=== PATIENT | female | born 1945 | race American Indian/Alaskan Native ===

== ENCOUNTER 2017-06-14 21:26 | Emergency (ER) | payer MEDICARE, OTHER ==
[~2017-06-14] VITALS: Ht 175.3 cm; Wt 93.0 kg
[~2017-06-14 21:26] MED LIST: DIALYVITE V5000 UNIT; GABAPENTIN100 MG PO; LORTAB 5-325 M1 EACH PO; LYRICA50 MG PO; NORCO 5-325 TA1 EACH PO; OXYCODONE HCL5 MG PO; OXYCODONE-ACET1 EAC1 PO; TRAMADOL HCL50 MG PO; ULORIC40 MG PO; [UNRECOGNIZED DRUG - OTHER]
--- NOTE | 2017-06-15 06:55 | EKG ---
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
== END 2017-06-15 01:15 | disposition home or self-care (01) ==
LOC: ED 21:26
DX: R07.9 Chest pain, unspecified (principal); Z90.49 Acquired absence of other specified parts of digestive tract; Z88.8 Allergy status to other drugs, medicaments and biological substances; Z79.899 Other long term (current) drug therapy; Z79.891 Long term (current) use of opiate analgesic
CPT/HCPCS: 71010; 71260; 80053; 84484; 85025; 93005; 93010; 96361; 96374; 96375; 99284; J1170; J2405; J7030; Q9967

== ENCOUNTER 2019-03-02 19:56 | Emergency (ER) | payer MEDICARE, OTHER ==
[~2019-03-02] VITALS: Ht 175.3 cm; Wt 80.7 kg
--- OUTSIDE RECORDS SUMMARY | ~2019-03-02 | XMS | Clinical Summary ---
Demographics + + + | Address | [address] | | | [place] [address] | + + + | Home Phone | | + + + | Preferred Language | Unknown | + + + | Marital Status | | + + + | Adventism Affiliation | Unknown | + + + | Race | Unknown | + + + | Ethnic Group | Unknown | + + + Author + + + | Author | [facility] | | | and [place] | + + + | Organization | [facility] | | | and [place] | + + + | Address | Unknown | + + + | Phone | Unavailable | + + + Support + + + + + | Name | Relationship | Address | Phone | + + + + + | Erinn Browning | ECON | [address] | | | | | [place] [address] | | + + + + + | Fran Cortez | ECON | [address] | | | | | [place] | | | | | [address] | | + + + + + Care Team Providers + +------+ + | Care Fish Hatchery Superintendent Name | Role | Phone | + +------+ + | Rose An PA-C | PP | | + +------+ + Allergies + + + + + + | Active Allergy | Reactions | Severity | Noted | Comments | | | | | Date | | + + + + + + | Acetaminophen | | | 12/18/20 | | | | | | 15 | | + + + + + + | Propoxyphene | | | 03//20 | | | | | | 14 | | + + + + + + | Epinephrine | | | 12/18/20 | | | | | | 15 | | + + + + + + | Naproxen | | | 12/18/20 | | | | | | 15 | | + + + + + + Medications + + + +---------+------+------+-------+ | Medication | Sig | Dispensed | Refills | Star | End | Statu | | | | | | t | Date | s | | | | | | Date | | | + + + +---------+------+------+-------+ | pregabalin | Take 1 capsule by | 60 | 2 | 07/14 | | Activ | | (LYRICA) 50 MG | mouth 2 times daily. | capsule | | 05/02 | | e | | capsule | | | | 15 | | | + + + +---------+------+------+-------+ | apremilast | Take 30 mg by mouth | | 0 | | | Activ | | (OTEZLA) 30 mg | 2 times daily. | | | | | e | | tablet | | | | | | | + + + +---------+------+------+-------+ | folic acid 1 mg | Take 1 mg by mouth | | 0 | | | Activ | | tablet | Daily. | | | | | e | + + + +---------+------+------+-------+ | fluconazole | Take 150 mg by | | 0 | | | Activ | | (DIFLUCAN) 150 mg | mouth. Once weekly | | | | | e | | tablet | | | | | | | + + + +---------+------+------+-------+ | Secukinumab | Inject under the | | 0 | | | Activ | | (COSENTYX SC) | skin. | | | | | e | + + + +---------+------+------+-------+ Active Problems + + + | Problem | Noted Date | + + + | Bilateral hand pain | 08/21/2015 | + + + | Paresthesias - in both hands | 08/21/2015 | + + + | Myeloma | 01/27/2015 | + + + | Heart block AV first degree | | + + + | Dyspnea | | + + + | Fatigue | | + + + | Bradycardia | | + + + + + | Overview: Holter Monitor 11/23/15, shows predominant rhythm | | is normal sinus with the heart rate ranging between 63 and 125 | | beats per minute, average heart rate was 86 beats per minute | | during the 48:31 hour recording, occasional premature ventricular | | contractions including seven couplets, frequent premature atrial | | contractions including one couplet, one run of paroxysmal atrial | | tachycardia lasting 18 beats at a maximum rate of 131 beats per | | minute (17:22-1), the patient did not report any symptoms | | Echocardiogram 11/23/15, shows normal left ventricular size, wall | | thickness and motion, preserved left ventricular systolic | | function, LVEF is 65-70%, grade 1 left ventricular diastolic | | dysfunction, normal valvular structure, top normal aortic root | | measuring 3.7 cm in diameter, normal right-sided pressure, normal | | IVC with normal respiratory collapse. | + + Encounters +--------+ + + + + | Date | Type | Specialty | Care Team | Description | +--------+ + + + + | 01/14/ | Hospital | | Cristóbal Gary | Multiple myeloma, | | 2019 | Encounter | | MD Дмитрий | remission status | | | | | | unspecified (HCC) | | | | | | (Primary Dx); | | | | | | Paresthesias - in | | | | | | both hands; Heart | | | | | | block AV first | | | | | | degree; Bradycardia; | | | | | | Fatigue, | | | | | | unspecified type | +--------+ + + + + from Last 3 Months Family History + +--------+ + + | Relation | Name | Status | Comments | + +--------+ + + | | Kai | Alive | | + +--------+ + + | Father | | | Diabetes | | | | (Age | | | | | 64) | | + +--------+ + + | Mother | | | [place] | | | | (Age | | | | | 57) | | + +--------+ + + | Sister | Erinn | Alive | Diabetes | + +--------+ + + Social History + +-------+ +--------+------+ | Tobacco Use | Types | Packs/Day | Years | Date | | | | | Used | | + +-------+ +--------+------+ | Former Smoker | | | | | + +-------+ +--------+------+ + +---+---+---+ | Smokeless Tobacco: | | | | | Never Used | | | | + +---+---+---+ + + | Comments: quit smoking in 1999 | + + + + +---------+ + | Alcohol Use | Drinks/We | oz/Week | Comments | | | ek | | | + + +---------+ + | No | 0 | 0.0 | | | | Standard | | | | | drinks or | | | | | | | | | | equivalen | | | | | t | | | + + +---------+ + + + + | Sex Assigned at | Date Recorded | | | | + + + | Not on file | | + + + + + + + | Job Start Date | Occupation | Industry | + + + + | Not on file | Not on file | Not on file | + + + + + + + + | Travel History | Travel Start | Travel End | + + + + + + | No recent travel history available. | + + Last Filed Vital Signs + + + + | Vital Sign | Reading | Time Taken | + + + + | Blood Pressure | 119/55 | 01/14/2019 1415 PST | + + + + | Pulse | 73 | 01/14/20191414 PST | + + + + | Temperature | 36 C (96.8 F) | 01/14/20191414 PST | + + + + | Respiratory Rate | 16 | 01/14/20191414 PST | + + + + | Oxygen Saturation | 100% | 01/14/20191414 PST | + + + + | Inhaled Oxygen | - | - | | Concentration | | | + + + + | Weight | 83.8 kg (184 lb 11.9 | 01/14/20191414 PST | | | oz) | | + + + + | Height | 175.3 cm (5' 9") | 01/24/20171400 PDT | + + + + | Body Mass Index | 27.28 | 01/24/20171400 PDT | + + + + Plan of Treatment +--------+ + + + + | Date | Type | Specialty | Care Team | Description | +--------+ + + + + | 01/19/ | Appointment | | Cristóbal Gary | | | 2019 | | | MD Дм[address]рий [address] | | | | | [address] | | | | | | [place] [address] | | | | | | [phone] | | | | | | | | +--------+ + + + + + + + + + | Health Maintenance | Due Date | Last Done | Comments | + + + + + | Vaccine: | | | | | Dtap/Tdap/Td (1 - | 3 | | | | Tdap) | | | | + + + + + | Breast Cancer | | | | | Screening (Ages | 4 | | | | 50-74) | | | | + + + + + | Colorectal Cancer | | 08/21/2001 | | | Screening | 1 | | | | (Colonoscopy) | | | | + + + + + | Adult Annual | | | | | Wellness Visit | 5 | | | + + + + + | Vaccine: | | 10/01/2015 | | | Pneumococcal 65+ | 6 | | | | High/Highest Risk (2 | | | | | of 2 - PPSV23) | | | | + + + + + | Vaccine: Zoster (2 | | 08/31/2017, 09/30/2014 | | | of 3) | 7 | | | + + + + + | Vaccine: Influenza | Completed | 08/27/2018, 08/18/2017, | | | | | 08/03/2016, Additional history | | | | | exists | | + + + + + Procedures + +--------+ + + + | Procedure Name | Priori | Date/Time | Associated Diagnosis | Comments | | | ty | | | | + +--------+ + + + | CBC WITH | STAT | 01/14/2019 | Multiple myeloma, | Results for this | | DIFFERENTIAL | | 13:47 PST | remission status | procedure are in the | | | | | unspecified ([facility]) | results section. | | | | | Paresthesias - in | | | | | | both hands Heart | | | | | | block AV first | | | | | | degree Bradycardia | | + +--------+ + + + | COMPREHENSIVE | STAT | 01/14/2019 | Multiple myeloma, | Results for this | | METABOLIC PANEL | | 13:47 PST | remission status | procedure are in the | | | | | unspecified ([facility]) | results section. | | | | | Paresthesias - in | | | | | | both hands Heart | | | | | | block AV first | | | | | | degree Bradycardia | | + +--------+ + + + | PROTEIN | STAT | 01/14/2019 | Multiple myeloma, | Results for this | | ELECTROPHORESIS, | | 13:47 PST | remission status | procedure are in the | | SERUM | | | unspecified (HCC) | results section. | | | | | Paresthesias - in | | | | | | both hands Heart | | | | | | block AV first | | | | | | degree Bradycardia | | + +--------+ + + + from Last 3 Months Results CBC with Differential (01/14/2019 13:47 PST) + + + + + + | Component | Value | Ref Range | Performed | Pathologist | | | | | At | Signature | + + + + + + | WBC | 6.3 | 4.0 - 11.0 K/uL | [facility] | | | | | | [facility] | | | | | | [facility] | | | | | [facility] - | | | | | | LABORATORY | | + + + + + + | RBC | 3.84 | 3.70 - 5.20 | [facility] | | | | | M/uL | [facility] | | | | | | [facility] | | | | | | C[facility] - | | | | | | LABORATORY | | + + + + + + | Hemoglobin | 11.4 (L) | 11.5 - 16.0 | [facility] | | | | | g/dL | [facility] | | | | | | [facility] | | | | | | C[facility] - | | | | | | LABORATORY | | + + + + + + | Hematocrit | 34.0 | 34.0 - 47.0 % | [facility] | | | | | [facility] | | | | | [facility] | | | | | | [facility] - | | | | | | LABORATORY | | + + + + + + | MCV | 88.5 | 83.0 - 101.0 fL | [facility] | | | | | | [facility] | | | | | | [facility] | | | | | | [facility] - | | | | | | LABORATORY | | + + + + + + | MCH | 29.7 | 28.0 - 35.0 pg | [facility] | | | | | | [facility] | | | | | | [facility] | | | | | | [facility] - | | | | | | LABORATORY | | + + + + + + | MCHC | 33.5 | 32.0 - 36.0 | [facility] | | | | | g/dL | [facility] | | | | | | [facility] | | | | | | [facility] - | | | | | | LABORATORY | | + + + + + + | RDW-CV | 12.9 | <15.0 % | [facility] | | | | | | [facility] | | | | | | [facility] | | | | | | [facility] - | | | | | | LABORATORY | | + + + + + + | RDW-SD | 41.8 | 35.1 - 46.3 fL | [facility] | | | | | | [facility] | | | | | | [facility] | | | | | | [facility] - | | | | | | LABORATORY | | + + + + + + | Platelet | 178 | 140 - 440 K/uL | [facility] | | | Count | | | [facility] | | | | | | [facility] | | | | | | [facility] - | | | | | | LABORATORY | | + + + + + + | MPV | 8.9 | 6.5 - 12.4 fL | [facility] | | | | | | [facility] | | | | | | [facility] | | | | | | [facility] - | | | | | | LABORATORY | | + + + + + + | % | 73.1 | 45.0 - 82.0 % | [facility] | | | Neutrophils | | | [facility] | | | | | | [facility] | | | | | | [facility] - | | | | | | LABORATORY | | + + + + + + | % | 16.2 (L) | 20.0 - 45.0 % | [facility] | | | Lymphocytes | | | [facility] | | | | | | [facility] | | | | | | C[facility] - | | | | | | LABORATORY | | + + + + + + | % Monocytes | 5.9 | 4.0 - 12.0 % | [facility] | | | | | | [facility] | | | | | | [facility] | | | | | | [facility] - | | | | | | LABORATORY | | + + + + + + | % | 3.8 | 0.0 - 5.0 % | [facility] | | | Eosinophils | | | [facility] | | | | | | [facility] | | | | | | [facility] - | | | | | | LABORATORY | | + + + + + + | % Basophils | 0.5 | 0.0 - 1.0 % | [facility] | | | | | | [facility] | | | | | | [facility] | | | | | | [facility] - | | | | | | LABORATORY | | + + + + + + | % Immature | 0.5 (H)Comment: | 0.0 - 0.4 % | [facility] | | | Granulocyte | Preliminary studIes have | | [facility] | | | s | indicated the IG% | | MEDICAL | | | | and/or IG# show promise | | CENTER - | | | | as an early screen for | | LABORATORY | | | | infection. | | | | + + + + + + | Absolute | 4.61 | 1.80 - 8.50 | [facility] | | | Neutrophils | | K/uL | [facility] | | | | | | [facility] | | | | | | [facility] - | | | | | | LABORATORY | | + + + + + + | Absolute | 1.02 | 0.60 - 3.20 | [facility] | | | Lymphocytes | | K/uL | [facility] | | | | | | [facility] | | | | | | [facility] - | | | | | | LABORATORY | | + + + + + + | Absolute | 0.37 | 0.00 - 1.00 | [facility] | | | Monocytes | | K/uL | [facility] | | | | | | [facility] | | | | | | [facility] - | | | | | | LABORATORY | | + + + + + + | Absolute | 0.24 | 0.00 - 0.40 | [facility] | | | Eosinophils | | K/uL | [facility] | | | | | | [facility] | | | | | | [facility] - | | | | | | LABORATORY | | + + + + + + | Absolute | 0.03 | 0.00 - 0.10 | [facility] | | | Basophils | | K/uL | [facility] | | | | | | [facility] | | | | | | C[facility] - | | | | | | LABORATORY | | + + + + + + | Absolute | 0.03 | 0.00 - 0.03 | [facility] | | | Immature | | K/uL | [facility] | | | Granulocyte | | | MEDICAL | | | s | | | CENTER - | | | | | | LABORATORY | | + + + + + + | % nRBC | 0 | 0 - 2 per 100 | [facility] | | | | | WBC's | [facility] | | | | | | [facility] | | | | | | [facility] - | | | | | | LABORATORY | | + + + + + + | Absolute | 0.00 | 0.00 - 0.01 | [facility] | | | nRBC | | K/uL | [facility] | | | | | | [facility] | | | | | | [facility] - | | | | | | LABORATORY | | + + + + + + + + | Specimen | + + | Blood | + + + + + + + | Performing | Address | City/State/Zipcode | Phone Number | | Organization | | | | + + + + + | [facility] | [address] | [place] | [phone] | | [facility] | | [address] | | | - LABORATORY | | | | + + + + + Protein Electrophoresis, Serum (01/14/2019 13:47 PST) + + + + + + | Component | Value | Ref Range | Performed | Pathologist | | | | | At | Signature | + + + + + + | Total | 7.4Comment: See Scanned | 6.0 - 7.8 g/dL | [facility] | | | Protein | Report | | [facility] | | | | | | [facility] | | | | | | [facility] - | | | | | | LABORATORY | | + + + + + + | ELP Albumin | 3.3 (L) | 3.6 - 5.7 g/dL | [facility] | | | | | | [facility] | | | | | | [facility] | | | | | | [facility] - | | | | | | LABORATORY | | + + + + + + | ELP Alpha 1 | 0.1 | 0.1 - 0.2 g/dL | [facility] | | | Globulin | | | [facility] | | | | | | [facility] | | | | | | CENTER - | | | | | | LABORATORY | | + + + + + + | ELP Alpha 2 | 0.6 | 0.4 - 0.9 g/dL | [facility] | | | Globulin | | | [facility] | | | | | | [facility] | | | | | | CENTER - | | | | | | LABORATORY | | + + + + + + | ELP Beta 1 | 0.5 | 0.3 - 0.7 g/dL | [facility] | | | Globulin | | | [facility] | | | | | | [facility] | | | | | | CENTER - | | | | | | LABORATORY | | + + + + + + | ELP Beta 2 | 0.3 | 0.1 - 0.4 g/dL | [facility] | | | Globulin | | | [facility] | | | | | | [facility] | | | | | | CENTER - | | | | | | LABORATORY | | + + + + + + | ELP Gamma | 1.9 (H) | 0.4 - 1.2 g/dL | [facility] | | | Globulin | | | [facility] | | | | | | [facility] | | | | | | CENTER - | | | | | | LABORATORY | | + + + + + + | Monoclonal | 1.1 | g/dL | [facility] | | | Band 1, | | | [facility] | | | Serum | | | MEDICAL | | | | | | CENTER - | | | | | | LABORATORY | | + + + + + + | ELP Albumin | 49.3 | % | [facility] | | | % | | | [facility] | | | | | | [facility] | | | | | | CENTER - | | | | | | LABORATORY | | + + + + + + | Albumin/Dodie | 0.8 | | [facility] | | | bulin Ratio | | | [facility] | | | | | | [facility] | | | | | | CENTER - | | | | | | LABORATORY | | + + + + + + | ELP Alpha 1 | 2.2 | % | [facility] | | | Globulin % | | | [facility] | | | | | | MEDICAL | | | | | | CENTER - | | | | | | LABORATORY | | + + + + + + | ELP Alpha 2 | 8.9 | % | [facility] | | | Globulin % | | | [facility] | | | | | | [facility] | | | | | | CENTER - | | | | | | LABORATORY | | + + + + + + | ELP Beta 1 | 7.1 | % | [facility] | | | Globulin % | | | [facility] | | | | | | [facility] | | | | | | CENTER - | | | | | | LABORATORY | | + + + + + + | ELP Beta 2 | 3.8 | % | [facility] | | | Globulin % | | | [facility] | | | | | | MEDICAL | | | | | | CENTER - | | | | | | LABORATORY | | + + + + + + | ELP Gamma | 28.7 | % | [facility] | | | Globulin % | | | [facility] | | | | | | [facility] | | | | | | CENTER - | | | | | | LABORATORY | | + + + + + + | Monoclonal | 15.9 | % | [facility] | | | Band 1%, | | | [facility] | | | Serum | | | MEDICAL | | | | | | CENTER - | | | | | | LABORATORY | | + + + + + + + + | Specimen | + + | Blood | + + + + + | Narrative | Performed At | + + + | The gamma | [facility] | | region IgG kappa monoclonal protein is decreased to 1.1 g/dl from | [facility] | | 1.2 g/dl on 01/10/18.Jose Corona MD, 01/17/19. | [facility] | | | - LABORATORY | + + + + + + + + | Performing | Address | City/State/Zipcode | Phone Number | | Organization | | | | + + + + + | [facility] | [address] | [place] | [phone] | | [facility] | | [address] | | | - LABORATORY | | | | + + + + + Comprehensive Metabolic Panel (01/14/2019 13:47 PST) + +---------+ + + + | Component | Value | Ref Range | Performed | Pathologist | | | | | At | Signature | + +---------+ + + + | Na | 139 | 136 - 145 | [facility] | | | | | mmol/L | [facility] | | | | | | MEDICAL | | | | | | CENTER - | | | | | | LABORATORY | | + +---------+ + + + | K | 3.6 | 3.4 - 5.1 | [facility] | | | | | mmol/L | [facility] | | | | | | MEDICAL | | | | | | CENTER - | | | | | | LABORATORY | | + +---------+ + + + | Cl | 109 (H) | 98 - 107 mmol/L | [facility] | | | | | | [facility] | | | | | | [facility] | | | | | | CENTER - | | | | | | LABORATORY | | + +---------+ + + + | CO2 | 25 | 20 - 31 mmol/L | [facility] | | | | | | [facility] | | | | | | MED[facility] | | | | | | CENTER - | | | | | | LABORATORY | | + +---------+ + + + | Anion Gap | 5 | 3 - 16 mmol/L | [facility] | | | | | | [facility] | | | | | | [facility] | | | | | | CENTER - | | | | | | LABORATORY | | + +---------+ + + + | Glucose | 94 | 60 - 106 mg/dL | [facility] | | | | | | [facility] | | | | | | MEDICAL | | | | | | CENTER - | | | | | | LABORATORY | | + +---------+ + + + | BUN | 10 | 9 - 23 mg/dL | [facility] | | | | | [facility] | | | | | | [facility] | | | | | | [facility] - | | | | | | LABORATORY | | + +---------+ + + + | Creatinine | 0.85 | 0.55 - 1.02 | [facility] | | | | | mg/dL | [facility] | | | | | | MEDICAL | | | | | | CENTER - | | | | | | LABORATORY | | + +---------+ + + + | eGFR if not | >60 | >=60 | [facility] | | | | | mL/min/1.73m2 | [facility] | | | [place] | | | [facility]ICAL | | | | | | CENTER - | | | | | | LABORATORY | | + +---------+ + + + | Ca | 9.0 | 8.7 - 10.4 | [facility] | | | | | mg/dL | [facility] | | | | | | [facility] | | | | | | CENTER - | | | | | | LABORATORY | | + +---------+ + + + | Albumin | 3.5 | 3.2 - 4.8 g/dL | [facility] | | | | | | [facility] | | | | | | [facility] | | | | | | CENTER - | | | | | | LABORATORY | | + +---------+ + + + | Bilirubin | 0.9 | 0.3 - 1.2 mg/dL | [facility] | | | Total | | | [facility] | | | | | | [facility] | | | | | | CENTER - | | | | | | LABORATORY | | + +---------+ + + + | Total | 7.2 | 5.7 - 8.2 g/dL | [facility] | | | Protein | | | [facility] | | | | | | [facility] | | | | | | CENTER - | | | | | | LABORATORY | | + +---------+ + + + | AST | 19 | 0 - 34 U/L | [facility] | | | | | | [facility] | | | | | | MEDICAL | | | | | | CENTER - | | | | | | LABORATORY | | + +---------+ + + + | ALT | 7 (L) | 10 - 49 U/L | [facility] | | | | | | [facility] | | | | | | MEDICAL | | | | | | CENTER - | | | | | | LABORATORY | | + +---------+ + + + | Alkaline | 91 | 46 - 116 U/L | [facility] | | | Phosphatase | | | [facility] | | | | | | MEDICAL | | | | | | CENTER - | | | | | | LABORATORY | | + +---------+ + + + | Globulin | 3.7 | 2.1 - 3.8 g/dL | [facility] | | | | | | [facility] | | | | | | [facility]ICAL | | | | | | CENTER - | | | | | | LABORATORY | | + +---------+ + + + | Albumin/Dodie | 0.9 | 0.8 - 1.9 | [facility] | | | bulin Ratio | | | [facility] | | | | | | MEDICAL | | | | | | CENTER - | | | | | | LABORATORY | | + +---------+ + + + | BUN/Creatin | 11.8 | | [facility] | | | ine Ratio | | | [facility] | | | | | | MEDICAL | | | | | | CENTER - | | | | | | LABORATORY | | + +---------+ + + + + + | Specimen | + + | Blood | + + + + + + + | Performing | Address | City/State/Zipcode | Phone Number | | Organization | | | | + + + + + | [facility] | [address] | [place] | [phone] | | [facility] | | [address] | | | - LABORATORY | | | | + + + + + from Last 3 Months Insurance + +--------+ +--------+ +---------+--------+ | Payer | Benefi | Subscriber | Effect | Phone | Address | Type | | | t Plan | ID | julia | | | | | | / | | Dates | | | | | | Group | | | | | | + +--------+ +--------+ +---------+--------+ | MEDICARE | [employer] | [id number] | 12/14/19 | [phone] | | Medica | | | RE | | 03-Pre | 5 | | re | | | PART A | | sent | | | | | | AND B | | | | | | + +--------+ +--------+ +---------+--------+ | [facility] | [employer] | [id number] | | | | Indemn | | SERVICE | YELLOW | | 012-Pr | | | ity | | | HAWK | | esent | | | | + +--------+ +--------+ +---------+--------+ + +--------+ +--------+ + + | Guarantor Name | Accoun | Relation to | Date | Phone | Billing Address | | | t Type | Patient | of | | | | | | | | | | + +--------+ +--------+ + + | Anne Cortez | Person | Self | [birth year] | [address] | | | al/Fam | | 1945 | [phone] | [place] [address] | | | lisa | | | 8 (Home) | | + +--------+ +--------+ + + Advance Directives Patient has advance care planning documents on file. For more information, please contact:[facility] [place] [address]
--- OUTSIDE RECORDS SUMMARY | ~2019-03-02 | XMS | Encounter Summary ---
Demographics + + + | Address | [address] | | | [place] [address] | + + + | Home Phone | | + + + | Preferred Language | Unknown | + + + | Marital Status | | + + + | Confucianism Affiliation | Unknown | + + + | Race | Unknown | + + + | Ethnic Group | Unknown | + + + Author + + + | Author | [facility] | | | and [place] | + + + | Organization | [facility] | | | and [place] | + + + | Address | Unknown | + + + | Phone | Unavailable | + + + Support + + + + + | Name | Relationship | Address | Phone | + + + + + | Erinn Browning | ECON | [address] | | | | | [place] [address] | | + + + + + | Fran Cortez | ECON | [address] | | | | | [place] | | | | | [address] | | + + + + + Care Team Providers + +------+ + | Care Software Intern Name | Role | Phone | + +------+ + | Rose An PA-C | PCP | | + +------+ + Reason for Visit + + + | Reason | Comments | + + + | Follow-up | | + + + Evaluate & Treat (Routine) +--------+--------+ + + + + | Status | Reason | Specialty | Diagnoses / | Referred By | Referred To | | | | | Procedures | Contact | Contact | +--------+--------+ + + + + | Closed | | Medical | Diagnoses | [facility] | Abdirahman | | | | Oncology / | Multiple | Medical | Cristóbal | | | | Oncology | Myeloma | Oncology | MD Дмитрий | | | | | Procedures | Clinic [address] | [address] | | | | | [place] OFFICE | [address] | [facility] | | | | | OUTPATIENT | [place], | [place], [place] | | | | | [address] | [place] | [address] Phone: | | | | | MINUTES | [address] | [phone] | | | | | | Phone: | Fax: | | | | | | [phone] | [phone] | | | | | | Fax: | | | | | | | [phone] | | +--------+--------+ + + + + Encounter Details +--------+ + + + + | Date | Type | Department | Care Team | Description | +--------+ + + + + | 01/14/ | Hospital | [facility] | Cristóbal Gary | Multiple myeloma, | | 2019 | Encounter | [facility] | MD Дмитрий [address] | remission status | | | | ONCOLOGY CLINIC [address] | [address] [place] | unspecified (HCC) | | | | W [facility] | [place] [address] | (Primary Dx); | | | | [place] [address] | [phone] | Paresthesias - in | | | | [phone] | | both hands; Heart | | | | | | block AV first | | | | | | degree; Bradycardia; | | | | | | Fatigue, | | | | | | unspecified type | +--------+ + + + + Social History + +-------+ +--------+------+ [...] recent travel history available. | + + documented as of this encounter Last Filed Vital Signs + + + + | Vital Sign | Reading | Time Taken | + + + + | Blood Pressure | 119/55 | 01/14/20191414 PST | + + + [...] | 83.8 kg (184 lb 11.9 | 01/14/2019 1415 PST | | | oz) | | + + + + | Height | - | - | + + + + | Body Mass Index | 27.28 | 01/24/2017 1401 PDT | + + + + documented in this encounter Medications at Time of Discharge + + + +---------+ + + | Medication | Sig | Dispensed | Refills | Start | End Date | | | | | | Date | | + + + +---------+ + + | apremilast | Take 30 mg by mouth | | 0 | | | | (OTEZLA) 30 mg | 2 times daily. | | | | | | tablet | | | | | | + + + +---------+ + + | fluconazole | Take 150 mg by | | 0 | | | | (DIFLUCAN) 150 mg | mouth. Once weekly | | | | | | tablet | | | | | | + + + +---------+ + + | folic acid 1 mg | Take 1 mg by mouth | | 0 | | | | tablet | Daily. | | | | | + + + +---------+ + + | pregabalin | Take 1 capsule by | 60 | 2 | 07/29/20 | | | (LYRICA) 50 MG | mouth 2 times daily. | capsule | | 15 | | | capsule | | | | | | + + + +---------+ + + | Secukinumab | Inject under the | | 0 | | | | (COSENTYX SC) | skin. | | | | | + + + +---------+ + + documented as of this encounter Progress Notes Cristóbal Gary MD - 01/14/2019 1420 PSTFormatting of this note might be differen t from the original. Hem-Onc Progress Note [facility] Pt. Name/Age/: Anne Cortez 73 y.o. 1945 Med. Record Number: [id number] Date of admission: 01/14/2019 Assessment and plan: 1. 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 Studies then disclose bone marrow plasmacy tosis, normal karyotype. 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 2. Degenerative disease of the lumbar spine. 3. Degenerative disease of the extremities, status post total knee replacement in 2008. 4. History of temporal lobe epilepsy 5. Rheumatoid Arthritis A counseling session today first reviewing today's laboratory testing noting stable hematop oietic and chemistry parameters consistent with earlier impression of long-standing smolderi ng disease. Results of serum protein electrophoresis pending of the time of this dictation and will be forwarded to patient through my chart. Much congratulations to patient for prol onged period of disease stability marking on patient's freedom from infectious complications as one example. We discussed the possibility of participating in physical therapy programs as a means of maintaining balance to reduce falling risk. Otherwise follow-up in the [facility] to continue on an annual basis. Subjective: The patient chart and medications were reviewed in detail and the patient was seen and exam inematheus. Anne Cortez is a 73 y.o. female returns today for follow-up and monitoring of smolderi ng multiple myeloma of long-standing. Patient approaching 20 years since the initial diagnosis of myeloma in the alber of and then manifest as a biclonal gammopathy related to both IgA lambda and IgG kappa. St udies then however including normal karyotype and then follow-up monitoring in the ensuing y ears has never indicated disease activity. Instead patient mostly battling problems referab le to combined rheumatoid and degenerative arthritis. In that regard patient reports recent initiation of new disease modulator which she receives as an injection which has been makin g a substantial difference in her underlying pain. Patient still developing deformities par ticularly in the fingers and has been using physical therapy as a means of maintaining funct ion. Other areas of pain include the back referable to degenerative disease. Patient also has had 3 falls in the time since her most recent visit one year earlier. PSH: Reviewed, no changes to admission H&P. Past Medical History: Diagnosis Date Bilateral hand pain 08/21/2015 Bursitis Cancer (HCC) Chronic back pain Dyspnea Esophageal reflux Fatigue Gout Heart block AV first degree Lupus (HCC) Monoclonal gammopathy Multiple myeloma (HCC) Paresthesias - in both hands 08/21/2015 Sinusitis Sleep apnea Tenosynovitis Tinnitus TMJ (temporomandibular joint disorder) Review of Systems: Constitutional: Denies fatigue. Denies high fevers, shaking chills, anorexia, nausea, vomit ing, weight loss, or night sweats. Appetite without changes. States she feels weak today, " it just hits me". Ear, Nose, Mouth, Throat: Denies odynophagia, dysphagia, or tinnitus. Cardiovascular: Denies shortness of breath, dyspnea on exertion, chest pain, palpitations o r orthopnea. Respiratory: Denies cough, hemoptysis, or sputum production. Gastrointestinal: Denies abdominal pain, constipation, diarrhea, melena, or bright red bloo d per rectum. Genitourinary: Denies hematuria or dysuria. Musculoskeletal: Denies joint pain or tenderness. Mid back pain reported. Intermittent cons tipation reported. Joint pain in hands Neurologic: Denies headache. Unchanged numbness/tingling of the extremities. States vision is getting worse. Endocrine: Denies peripheral edema or heat/cold intolerance. Hematologic: Denies spontaneous bruising or bleeding. Easily to brusie. Integumentary: Denies rash, wounds or other skin concerns. Pain: Back pain is as high as 5/10. Goal <6/10. Takes tylenol prn which helps. Review of systems as above otherwise negative Scheduled Medications: Continuous Infusions: PRN Meds:. Allergy: Allergies Allergen Reactions Acetaminophen Epinephrine Naproxen Propoxyphene Current Outpatient Prescriptions on File Prior to Encounter Medication Sig Dispense Refill apremilast (OTEZLA) 30 mg tablet Take 30 mg by mouth 2 times daily. fluconazole (DIFLUCAN) 150 mg tablet Take 150 mg by mouth. Once weekly folic acid 1 mg tablet Take 1 mg by mouth Daily. pregabalin (LYRICA) 50 MG capsule Take 1 capsule by mouth 2 times daily. 60 capsule 2 No current facility-administered medications on file prior to encounter. Objectives: Temp: 36 C (96.8 F) BP: 119/55 Pulse: 73 Resp: 16 SpO2: 100 % on Min/Max Temp past 24 hours:Temp Av C (96.8 F) Min: 36 C (96.8 F) Max: 36 C (96.8 F) No intake or output data in the 24 hours ending 01/14/19 1420 Wt. Admission: Weight: 83.8 kg (184 lb 11.9 oz) Wt. Current: Weight: 83.8 kg (184 lb 11 .9 oz) Physical Exam: Exam: General: The patient is alert and oriented. No acute distress. Genitourinary: Deferred. Extremities: [place] neck deformities of the fingers Skin: No rashes, bruising, or petechiae. Lymph: No palpable nodes in the neck, supraclavicular fossa, axilla or groin. Neurological: Cranial nerves are intact. Normal sensory and motor function, No focal defi cits noted. Muscular/Skeletal: No acute bony tenderness. Psychiatric: Normal mood and affect. Diagnostic studies: Available data and images were reviewed personally. See reports. Significant results and findings are addressed here or in the Assessment and Plan. Recent Labs Lab 01/14/19 1347 WBC 6.3 HGB 11.4* HCT 34.0 PLT 178 Electronically signed by: Cristóbal Gary, 01/14/2019 14:20 [facility] TIME SPENT 20 MIN. > 50% AT BEDSIDE, WITH FAMILY/PATIENT IN CARE AND SHAREPOINT SPECIALIST ON UNIT AND CO ORDINATION OF CARE Portions of this chart may have been created with StoreDot voice recognition software. Occasi onal wrong-word or sound-alike substitutions may have occurred due to the inherent ang itations of voice recognition software. Please read the chart carefully and recognize, using context, where these substitutions have occurred. Shanelle Cervantes CMA - 01/14/2019 1418 PSTREVIEW OF SYSTE MS Constitutional: Denies fatigue. Denies high fevers, shaking chills, anorexia, nausea, vomit ing, weight loss, or night sweats. Appetite without changes. States she feels weak today, " it just hits me". Ear, Nose, Mouth, Throat: Denies odynophagia, dysphagia, or tinnitus. Cardiovascular: Denies shortness of breath, dyspnea on exertion, chest pain, palpitations o r orthopnea. Respiratory: Denies cough, hemoptysis, or sputum production. Gastrointestinal: Denies abdominal pain, constipation, diarrhea, melena, or bright red bloo d per rectum. Genitourinary: Denies hematuria or dysuria. Musculoskeletal: Denies joint pain or tenderness. Mid back pain reported. Intermittent cons tipation reported. Joint pain in hands Neurologic: Denies headache. Unchanged numbness/tingling of the extremities. States vision is getting worse. Endocrine: Denies peripheral edema or heat/cold intolerance. Hematologic: Denies spontaneous bruising or bleeding. Easily to brusie. Integumentary: Denies rash, wounds or other skin concerns. Pain: Back pain is as high as 5/10. Goal <6/10. Takes tylenol prn which helps. Note: Declined My chart: documented in this enc ounter Plan of Treatment +--------+ + + + + | Date | Type | Specialty | Care Team | Description | +--------+ + + + + | 01/19/ | Appointment | Oncology | Cristóbal Gary | | | 2019 | | | MD Дмитрий [address] | | | | | | [address] | | | | | | [place] [address] | | | | | | [phone] | | | | | | | | +--------+ + + + + documented as of this encounter Procedures + +--------+ + + + | [...] the | | | | | unspecified ([facility]) | results section. | | | | [...] | | SERUM | | | unspecified ([facility]) | results section. | | | | [...] the | | | | | unspecified ([facility]) | results section. | | | | | Paresthesias - in | | | | | | both hands Heart | | | | | | block AV first | | | | | | degree Bradycardia | | + +--------+ + + + documented in this encounter Results Comprehensive Metabolic Panel (01/14/2019 13:47 PST) + [...] | | | | mg/dL | [facility] | | | | | | MEDICAL | | | | | | CENTER - | | | | | | LABORATORY | | + +---------+ + + + | eGFR if not | >60 | >=60 | [facility] | | | | | mL/min/1.73m2 | [facility] | | | [facility] | | | MEDICAL | | | | | | CENTER - | | | | | | LABORATORY | | + +---------+ + + + | Ca | 9.0 | 8.7 - 10.4 | [facility] | | | | | mg/dL | [facility] | | | | [...] | | ine Ratio | | | [facility] | [...] ST. | [address] | [place] | [phone] | | [facility] | | [address] | | | - LABORATORY | | [...] + + + | The gamma | [facility] | | region IgG kappa monoclonal protein is decreased to 1.1 g/dl from | [facility] | | 1.2 g/dl on 01/10/18.Jose Corona MD, 01/17/19. | [facility] | | | - LABORATORY | + + + + + + + + | Performing | Address | City/State/Zipcode | Phone Number | | Organization | | | | + + + + + | [facility] | [address] | [place] | [phone] | | [facility] | | [address] | | | - LABORATORY | | | | + + + + + CBC with Differential (01/14/2019 13:47 PST) + + + + + + | Component | Value | Ref Range | Performed | Pathologist | | | | | At | Signature | + + + + + + | WBC | 6.3 | 4.0 - 11.0 K/uL | [facility] | | | | | [...] | | | | | g/dL | [facility] | | | | [...] | Preliminary studIes have | | [facility] | | | s | indicated the [...] | Neutrophils | | K/uL | [facility] | [...] | Eosinophils | | K/uL | [facility] | | | | | | MEDICAL | | | | | | CENTER - | | | | | | LABORATORY | | + + + + + + | Absolute | 0.03 | 0.00 - 0.10 | [facility] | | | Basophils | | K/uL | [facility] | [...] | | | | | WBC's | [facility] | | | | | | MEDICAL | | | | | | CENTER - | | | | | | LABORATORY | | + + + + + + | Absolute | 0.00 | 0.00 - 0.01 | [facility] | | | nRBC | | K/uL | [facility] | [...] + + | [facility] | [address] | [place], [place] | [phone] | | [facility] | | [address] | | | - LABORATORY | | | | + + + + + documented in this encounter Visit Diagnoses + + | Diagnosis | + + | Multiple myeloma, remission status unspecified (HCC) - Primary | + + | Paresthesias - in both hands Disturbance of skin sensation | + + | Heart block AV first degree First degree atrioventricular block | + + | Bradycardia Sinoatrial node dysfunction | + + | Fatigue, unspecified type | + + documented in this encounter
--- OUTSIDE RECORDS SUMMARY | ~2019-03-02 | XMS | Clinical Summary ---
Demographics + + + | Address | [address] | | | [place] [address] | + + + | Home Phone | | + + + | Preferred Language | Unknown | + + + | Marital Status | | + + + | Christianity Affiliation | Unknown | + + + | Race | Unknown | + + + | Ethnic Group | Unknown | + + + Author + + + | Author | [facility] | | | and [place] | + + + | Organization | [facility] | | | and [place] | + + + | Address | Unknown | + + + | Phone | Unavailable | + + + Support + + + + + | Name | Relationship | Address | Phone | + + + + + | Erinn Browning | ECON | [address] | | | | | [place] [address] | | + + + + + | Fran Cortez | ECON | [address] | | | | | [place] | | | | | [address] | | + + + + + Care Team Providers + +------+ + | Care Materials Planning Analyst Name | Role | Phone | + [...] + + | Mother | | | [place] | | | | (Age | | [...] | | | | [place] [address] | | | | | | [phone] | | | | | | | [...] the | | | | | unspecified ([facility]) | results section. | | | | [...] the | | | | | unspecified ([facility]) | results section. | | | | [...] [address] | [place] | [phone] | | [facility] | | [address] | | | - LABORATORY | | [...] is decreased to 1.1 g/dl from | [facility] | | 1.2 g/dl on 01/10/18.Jose Corona MD, 01/17/19. | [facility] | | | - LABORATORY | + + + + + + + + | Performing | Address | City/State/Zipcode | Phone Number | | Organization | | | | + + + + + | [facility] | [address] | [place] | [phone] | | [facility] | | [address] | | | - LABORATORY | | [...] mL/min/1.73m2 | [facility] | | | [place] | | | MEDICAL | | | [address] | [place] | [phone] | | [facility] | | [address] | | | - LABORATORY | | [...] +--------+ +---------+--------+ | MEDICARE | MEDICA | [id number] | 12/14/19 | [phone] | | Medica | | | RE | | 03-Pre | 5 | | re | | | PART A | | sent | | | | | | AND B | | | | | | + +--------+ +--------+ +---------+--------+ | [facility] | IHS | [id number] | | | | Indemn | | [...] Person | Self | [birth year] | [address] | | | al/Fam | | 1945 | [phone] | [place] [address] | | | lisa | | | 8 (Home) | | + +--------+ +--------+ + + Advance Directives Patient has advance care planning documents on file. For more information, please contact:[facility] [place] [address]
--- OUTSIDE RECORDS SUMMARY | ~2019-03-02 | XMS | Encounter Summary ---
Demographics + + + | Address | [address] | | | [place] [address] | + + + | Home Phone | | + + + | Preferred Language | Unknown | + + + | Marital Status | | + + + | Bahai Affiliation | Unknown | + + + | Race | Unknown | + + + | Ethnic Group | Unknown | + + + Author + + + | Author | [facility] | | | and [place] | + + + | Organization | [facility] | | | and [place] | + + + | Address | Unknown | + + + | Phone | Unavailable | + + + Support + + + + + | Name | Relationship | Address | Phone | + + + + + | Erinn Browning | ECON | [address] | | | | | [place] [address] | | + + + + + | Fran Cortez | ECON | [address] | | | | | [place] | | | | | [address] | | + + + + + Care Team Providers + +------+ + | Care Elevator Operator Freight Name | Role | Phone | + [...] [address] | | | | | DE OFFICE | [address] [place] | [facility] | | | | | OUTPATIENT | [place], | [place], [place] | | | | | [address] | [place] | [address] Phone: | | | | | MINUTES | [address] | [phone] | | | | | | Phone: | Fax: | | | | | | [phone] | [phone] | | | | | | Fax: | | | | | | | [phone] | | +--------+--------+ + + + + Encounter Details +--------+ + + + + | Date | Type | Department | Care Team | Description | +--------+ + + + + | 01/14/ | Hospital | [facility] | Cristóbal Gary | Multiple myeloma, | | 2019 | Encounter | [facility] | MD Дмитрий [address] | remission status | | | | ONCOLOGY CLINIC [address] | [address] [place] | unspecified (HCC) | | | | W [facility] | [place] [address] | (Primary Dx); | | | | [place] [address] | [phone] | Paresthesias - in | | | | [phone] | | both hands; Heart | | [...] t from the original. Hem-Onc Progress Note [facility] Pt. Name/Age/: Anne Cortez 73 y.o. 1945 Med. Record Number: [id number] Date of admission: 01/14/2019 Assessment and plan: [...] reduce falling risk. Otherwise follow-up in the [facility] to continue on an annual basis. Subjective: [...] oriented. No acute distress. Genitourinary: Deferred. Extremities: [place] neck deformities of the fingers Skin: No [...] Electronically signed by: Cristóbal Gary, 01/14/2019 14:20 [facility] TIME SPENT 20 MIN. > 50% AT BEDSIDE, WITH FAMILY/PATIENT IN CARE AND DOLL MAKER ON UNIT AND CO ORDINATION OF CARE Portions of this chart may have been created with Xention voice recognition software. Occasi onal wrong-word or [...] | | | | [place] [address] | | | | | | [phone] | | | | | | | [...] the | | | | | unspecified ([facility]) | results section. | | | | [...] | | SERUM | | | unspecified ([facility]) | results section. | | | | [...] the | | | | | unspecified ([facility]) | results section. | | | | [...] mL/min/1.73m2 | [facility] | | | [place] | | | MEDICAL | | | [...] ST. | [address] | [place] | [phone] | | [facility] | | [address] | | | - LABORATORY | | [...] + + | The gamma | [facility] | | region IgG kappa monoclonal protein is decreased to 1.1 g/dl from | [facility] | | 1.2 g/dl on 01/10/18.Jose Corona MD, 01/17/19. | [facility] | | | - LABORATORY | + + + + + + + + | Performing | Address | City/State/Zipcode | Phone Number | | Organization | | | | + + + + + | [facility] | [address] | [place] | [phone] | | [facility] | | [address] | | | - LABORATORY | | [...] | | | | WBC's | [facility] | | | | | | MEDICAL [...] ST. | [address] | [place], [place] | [phone] | | [facility] | | [address] | | | - LABORATORY | | [...]
[~2019-03-02 19:56] MED LIST changes: +IBUPROFEN600 MG PO; +OTEZLA30 MG PO
--- OUTSIDE RECORDS SUMMARY | 2019-03-02 20:00 | XMS ---
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 E.D. VISIT COUNT (12 MO.) 2 [facility]ston TOTAL 2 NOTE: Visits indicate total known visits. ED/UCC VISIT TRACKING (12 MO.) 03/02/2019 19:57 [facility] Garcia OR TYPE: Emergency COMPLAINT: - COLD SYMPTOMS 10/06/2018 09:42 [facility] TYPE: Emergency COMPLAINT: - R HIP PAIN/INJURY DIAGNOSES: - Unspecified fracture of sacrum, initial encounter for closed fracture - Fall on same level, unspecified, initial encounter - Low back pain - Other meterman (current) drug therapy - Allergy status to other drugs, medicaments and biological substances status - Personal history of nicotine dependence INPATIENT VISIT TRACKING (12 MO.) No inpatient visits to display in this time frame [id number]
== END 2019-03-02 21:20 | disposition home or self-care (01) ==
LOC: ED 19:56
DX: J20.9 Acute bronchitis, unspecified (principal); C90.00 Multiple myeloma not having achieved remission; Z87.891 Personal history of nicotine dependence; Z90.710 Acquired absence of both cervix and uterus; Z90.49 Acquired absence of other specified parts of digestive tract; Z88.8 Allergy status to other drugs, medicaments and biological substances
CPT/HCPCS: 99283

== ENCOUNTER 2019-09-21 15:18 | Emergency (ER) | payer MEDICARE, OTHER ==
[~2019-09-21] VITALS: Ht 175.3 cm; Wt 81.7 kg
--- OUTSIDE RECORDS SUMMARY | ~2019-09-21 | XMS | Clinical Summary ---
Demographics + + + | Home Phone | | + + + | Preferred Language | Unknown | + + + | Marital Status | Unknown | + + + | Orthodoxy Affiliation | Unknown | + + + | Race | Unknown | + + + | Ethnic Group | Unknown | + + + Author + + + | Author | [facility] (Historical as of | | | 06-29-19) | + + + | Organization | [facility] (Historical as of | | | 06-29-19) | + + + | Address | Unknown | + + + | Phone | Unavailable | + + + Care Team Providers + +------+ + | Care Uat Tester Name | Role | Phone | + +------+ + PP | Unavailable | + +------+ + Allergies Not on File Current Medications Not on file Active Problems Not on file Social History + +-------+ +--------+------+ | Tobacco Use | Types | Packs/Day | Years | Date | | | | | Used | | + +-------+ +--------+------+ | Never Assessed | | | | | + +-------+ +--------+------+ + + + | Sex Assigned at | Date Recorded | | | | + + + | Not on file | | + + + Plan of Treatment + + + + + | Health Maintenance | Due Date | Last Done | Comments | + + + + + | Vaccine: | | | | | Dtap/Tdap/Td (1 - | 3 | | | | Tdap) | | | | + + + + + | Vaccine: Zoster (1 | | | | | of 2) | 4 | | | + + + + + | DEXA SCAN SCREENING | | | | | | 9 | | | + + + + + | Vaccine: | | | | | Pneumococcal 65+ | 9 | | | | Low/Medium Risk (1 | | | | | of 2 - PCV13) | | | | + + + + + | Vaccine: Influenza | | | | | (#1) | 9 | | | + + + + + Results Not on filefrom Last 3 Months Insurance + +--------+ +------+-------+---------+ | Payer | Benefi | Subscriber | Type | Phone | Address | | | t Plan | ID | | | | | | / | | | | | | | Group | | | | | + +--------+ +------+-------+---------+ | [employer] | YELLOW | | | | | | PLANS | [place] | | | | | + +--------+ +------+-------+---------+ + +--------+ +--------+ + + | Guarantor Name | Accoun | Relation to | Date | Phone | Billing Address | | | t Type | Patient | of | | | | | | | | | | + +--------+ +--------+ + + | ANNE CORTEZ | Person | Self | [birth year] | Home: | | | | al/Fam | | 1945 | [phone] | | | lisa | | | [phone] | | + +--------+ +--------+ + +"
--- OUTSIDE RECORDS SUMMARY | ~2019-09-21 | XMS | Clinical Summary ---
Demographics + + + | Home Phone | | + + + | Preferred Language | Unknown | + + + | Marital Status | Unknown | + + + | Yarsani Affiliation | Unknown | + + + | Race | Unknown | + + + | Ethnic Group | Unknown | + + + Author + + + | Author | [facility] (Historical as of | | | 06-29-19) | + + + | Organization | [facility] (Historical as of | | | 06-29-19) | + + + | Address | Unknown | + + + | Phone | Unavailable | + + + Care Team Providers + +------+ + | Care Handle Sewer Name | Role | Phone | + [...] | | | + +--------+ +------+-------+---------+ | [facility] | YELLOW | | | | [...]
--- OUTSIDE RECORDS SUMMARY | ~2019-09-21 | XMS | Clinical Summary ---
Demographics + + + | Address | [address] | | | [place] [address] | + + + | Home Phone | | + + + | Preferred Language | Unknown | + + + | Marital Status | | + + + | Alevism Affiliation | Unknown | + + + | Race | Unknown | + + + | Ethnic Group | Unknown | + + + Author + + + | Author | [facility] | | | and [place] | + + + | Organization | [facility] | | | and [place] | + + + | Address | Unknown | + + + | Phone | Unavailable | + + + Support + + + + + | Name | Relationship | Address | Phone | + + + + + | Erinn Browning | ECON | [address] | | | | | [place] [address] | | + + + + + | Fran Cortez | ECON | [address] | | | | | [place] | | | | | [address] | | + + + + + Care Team Providers + +------+ + | Care Tank Inspector Name | Role | Phone | + +------+ + | Rose An PA-C | PCP | Unavailable | + +------+ + Allergies + + [...] 2 times daily. | capsule | | / | | e | | capsule | [...] with normal respiratory collapse. | + + Family History + +--------+ + + | Relation | Name | Status | Comments | + +--------+ + + | Brother | Kai | Alive | | + +--------+ + + | Father | | | Diabetes | | | | (Age | | | | | 64) | | + +--------+ + + | Mother | | | [place] | | | | (Age | | [...] Height | 175.3 cm (5' 9") | 01/24/2017 140 PDT | + + + + | Body Mass Index | 27.28 | 01/24/2017 140 PDT | + + + + Plan of Treatment +--------+ + + + + | Date | Type | Specialty | Care Team | Description | +--------+ + + + + | 01/19/ | Appointment | Oncology | Cristóbal Gary | | | 2019 | | | MD [address] | | | | | [address] | | | | | | [place] [address] | | | | | | [phone] | | | | | | | [...] Cancer | | | | | Screening | 9 | | | + + + + + | Vaccine: | | 10/01/2015 | | | Pneumococcal 65+ | 6 | | | | Low/Medium Risk (2 | | | | | of 2 - PPSV23) | | | | + + + + + | Vaccine: Zoster (2 | | 08/31/2017, 09/30/2014 | | | of 3) | 7 | | | + + + + + | Vaccine: Influenza | | 08/27/2018, 08/18/2017, | | | (#1) | 9 | 08/03/2016, Additional history | | | | | exists | | + + + + + Results Not on filefrom Last 3 Months Insurance + +--------+ +--------+ +---------+--------+ | Payer | Benefi | Subscriber | Effect | Phone | Address | Type | | | t Plan | ID | julia | | | | | | / | | Dates | | | | | | Group | | | | | | + +--------+ +--------+ +---------+--------+ | MEDICARE | MEDICA | [id number] | 12/14/19 | [phone] | | Medica | | | RE | | 03-Pre | 5 | | re | | | PART A | | sent | | | | | | AND B | | | | | | + +--------+ +--------+ +---------+--------+ | [facility] | IHS | [id number] | | | | Indemn | | [...] Person | Self | [birth year] | | [address] | | | al/Boby | | 1945 | [phone] | [place] [address] | | | lisa | | | 8 (Home) | | + +--------+ +--------+ + + Advance Directives Patient has advance care planning documents on file. For more information, please contact:[facility] [place] [address]
--- OUTSIDE RECORDS SUMMARY | ~2019-09-21 | XMS | Clinical Summary ---
Demographics + + + | Address | [address] | | | [place] [address] | + + + | Home Phone | | + + + | Preferred Language | Unknown | + + + | Marital Status | | + + + | Pentecostal Affiliation | Unknown | + + + | Race | Unknown | + + + | Ethnic Group | Unknown | + + + Author + + + | Author | [facility] | | | and [place] | + + + | Organization | [facility] | | | and [place] | + + + | Address | Unknown | + + + | Phone | Unavailable | + + + Support + + + + + | Name | Relationship | Address | Phone | + + + + + | Erinn Browning | ECON | [address] | | | | | [place] [address] | | + + + + + | Fran Cortez | ECON | [address] | | | | | [place] | | | | | [address] | | + + + + + Care Team Providers + +------+ + | Care Air Liaison And Special Staff Name | Role | Phone | + [...] + + | Mother | | | [place] | | | | (Age | | [...] | | | | | | [place] [address] | | | | | | [phone] | | | | | | | [...] +--------+ +---------+--------+ | MEDICARE | MEDICA | [id number] | 12/14/19 | [phone] | | Medica | | | RE | | 03-Pre | 5 | | re | | | PART A | | sent | | | | | | AND B | | | | | | + +--------+ +--------+ +---------+--------+ | [facility] | IHS | [id number] | | | | Indemn | | [...] Person | Self | [birth year] | | [address] | | | al/Boby | | 1945 | [phone] | [place] [address] | | | lisa | | | 8 (Home) | | + +--------+ +--------+ + + Advance Directives Patient has advance care planning documents on file. For more information, please contact:[facility] [place] [address]
[~2019-09-21 15:18] MED LIST changes: +COSENTYX S150 MG/1 M; +MELOXICAM15 MG PO
--- OUTSIDE RECORDS SUMMARY | 2019-09-21 15:20 | XMS ---
PreManage Notification: CLEM KAUR Security Bolt Loader Events No recent Security Events currently on file CRITERIA MET - [facility] Guidelines - [facility] Physician Retail Event Assistant: Surgical 03/04/2019-Current PHONE: Unknown [facility] Current PHONE: Unknown edmond Case or Batter Depositor Current PHONE: Unknown Justice Merino Current Orthopedic Surgery \T\ Fracture Clinic PHONE: Unknown Edmund has no Care Guidelines for this patient. 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 \T\middot;\T\nbsp; PLEASE REFER PATIENT TO [facility] FOR NON EMERGENT MEDICAL NEEDS. \T\middot;\ T\nbsp; [facility] CAN SEE PATIENTS SAME DAY FOR APTS IF PATIENT CALLS FIRST THING IN THE MORNING. E.D. VISIT COUNT (12 MO.) 4 [facility]. TOTAL 4 NOTE: Visits indicate total known visits. ED/UCC VISIT TRACKING (12 MO.) 09/21/2019 15:19 [facility] TYPE: Emergency COMPLAINT: - SOB/CONGESTIOM 06/29/2019 12:02 [facility] TYPE: Emergency COMPLAINT: - BACK PAIN, LEFT-NON INJURY DIAGNOSES: - Dorsalgia, unspecified - Allergy status to oth drug/meds/biol subst status - Multiple myeloma not having achieved remission - Nicotine dependence, unspecified, uncomplicated 03/02/2019 19:57 [facility] TYPE: Emergency COMPLAINT: - COLD SYMPTOMS DIAGNOSES: - Allergy status to oth drug/meds/biol subst status - Acquired absence of both cervix and uterus - Acquired absence of other specified parts of digestive tract - Acute bronchitis, unspecified - Multiple myeloma not having achieved remission - Personal history of nicotine dependence - Cough 10/06/2018 09:42 [facility] TYPE: Emergency COMPLAINT: - R HIP PAIN/INJURY DIAGNOSES: - Unsp fracture of sacrum, init encntr for closed fracture - Fall on same level, unspecified, initial encounter - Low back pain - Other shelter (current) drug therapy - Allergy status to oth drug/meds/biol subst status - Personal history of nicotine dependence INPATIENT VISIT TRACKING (12 MO.) No inpatient visits to display in this time frame [email or web address]
[2019-09-21] MEDS ORDERED: VIRTUSSIN AC L118 ML PO (17:59)
== END 2019-09-21 18:03 | disposition home or self-care (01) ==
LOC: ED 15:18
DX: J06.9 Acute upper respiratory infection, unspecified (principal); Z87.891 Personal history of nicotine dependence; Z88.8 Allergy status to other drugs, medicaments and biological substances; Z79.899 Other long term (current) drug therapy
CPT/HCPCS: 71046; 99283-25

== ENCOUNTER 2020-05-12 11:55 | Day surgery (SDC) | payer MEDICARE, OTHER ==
[~2020-05-12] VITALS: Ht 175.3 cm; Wt 79.4 kg
[~2020-05-12 11:55] MED LIST changes: +VIRTUSSIN AC L118 ML PO
--- NOTE | 2020-05-12 13:49 | NUR ---
PARLOR MAIDHOLLIE MAY CONTACTED ME AND STATED PT WOULD LIKE PRAYER BEFORE SHE HAS HER PROCEDURE. I ENTEREDPT'S RM, AND FOUND HER TO BE ALERT, ORIENTED AND SUPPORTED BY HER CISCO.PT INFORMED ME SHE HAS HAD PREVIOUS SCOPES,BUT NOW THAT SHE IS A CANCER PT, THIS HAS HER A LITTLE ANXIOUS. EXPLAINED PROCESS ANSWERED HER QUESTONS. CICSO WILL WAIT IN CAR, OR STAFF TO CALL WHEN PT IS READY FOR DC. PT REQUESTED PRAYER, GAVE CISCO' PHONE # TO HOLLIE WOOD AND GAVE THEM BOTH ENCOURAGEMENT
--- NOTE | 2020-05-12 14:20 | NUR ---
05/12/20 1420 Farrah Peña 1413 PATIENT ARRIVES TO PACU SLEEPING. RESPONDS TO VERBAL STIMULI, BUT KEEPS EYES CLOSED. RESP EVEN AND UNLABORED, ROOM AIR SATS >93% ON ARRIVAL TO PACU.
--- NOTE | 2020-05-13 10:50 | OR ---
[facility] [address] [place], [place] [address] Signed DATE OF OPERATION: 05/12/2020 SURGEON: Edmar Aguirre MD PREOPERATIVE DIAGNOSES: 1. Heme-positive stools (hemoccult positive). 2. History of longstanding multiple myeloma. POSTOPERATIVE DIAGNOSES: 1. Diverticulosis sigmoid. 2. Internal hemorrhoids. PROCEDURE: Total colonoscopy to cecum with biopsy of cecum and rectum. ANESTHESIA: Intravenous sedation fentanyl 150 mcg, Versed 6 mg. INDICATION: This 75-year-old Armenian woman has multiple myeloma and was found to have heme-positive stool on fecal occult blood testing. She has had no overt GI bleeding, however, denies any hematemesis. She does not smoke or drink alcohol. She is referred by Dr. Garibay of [facility] for consideration of colonoscopy. The risks of bleeding, infection, and perforation related to colonoscopy was reviewed with her. She understands and wished to proceed. Notably, she has a negative COVID-19 test preoperatively. FINDINGS: The prep was good. Complete colonoscopy was undertaken to the cecum without question. She had numerous diverticula of the sigmoid and left colon. No sign of active bleeding. There were internal hemorrhoids. Biopsies were taken of the rectum and cecum to assess for occult colitis. She did receive preoperative antibiotic Ancef. DESCRIPTION OF PROCEDURE: The patient was brought to the endoscopy suite and placed in lateral decubitus position. She was given intravenous sedation at the point of surgery to nystagmus with full cardiopulmonary monitoring. Intravenous Ancef was given preoperatively based on her knee replacement history. Electronically Signed By: EDMAR AGUIRRE MD 05/13/20 1050 PATIENT NAME: CLEM KAUR OPERATIVE REPORT DATE OF : 43 REPORT #: [id number] PHYSICIAN: EDMAR AGUIRRE MD PCP: DWAYNE GARIBAY MD REPORT IS CONFIDENTIAL AND NOT TO BE RELEASED WITHOUT AUTHORIZATION [facility] [address] [place], [place] [address] Signed After satisfactory sedation, digital rectal examination was performed, which was normal. An Olympus video colonoscope was passed in the rectum and manipulated throughout the colon into the sigmoid. Passage to the sigmoid was challenging on that basis the scope was changed out for another on the possibility that an another scope would be more beneficial. Ultimately, it was passed to the same area and abdominal manipulation allowed for passage of the scope down the sigmoid where numerous diverticula were noted. The scope was advanced carefully ultimately to the cecum. The ileocecal valve and appendiceal orifice were normal. The prep had been considered quite good. Biopsies were taken of the cecum, but appeared clinically normal. The scope was withdrawn further. Remaining colon was normal except for diverticular changes as previously noted. Retroflexed view did show internal hemorrhoids. Biopsy was taken of the rectum to assess for occult colitis. The scope was removed. The patient was taken to the recovery room in good condition. CONCLUDING DIAGNOSIS: Hemoccult positive stool of uncertain etiology. No evidence of neoplasm or colitis. PLAN: She will return to the ongoing care of Dr. Garibay of [facility] . If there are further issues, I am happy to assist Dr. Garibay as he wishes. Edmar Aguirre MD /MODL /[id number] cc: Dwayne Garibay MD Copies: DWAYNE GARIBAY MD ~ Electronically Signed By: EDMAR AGUIRRE MD 05/13/20 1050 PATIENT NAME: CLEM KAUR OPERATIVE REPORT DATE OF : 43 REPORT #: [id number] PHYSICIAN: EDMAR AGUIRRE MD PCP: DWAYNE GARIBAY MD REPORT IS CONFIDENTIAL AND NOT TO BE RELEASED WITHOUT AUTHORIZATION
--- NOTE | 2020-05-14 15:36 | PATH ---
[facility] [address] [place] [place] [address] Signed SPECIMEN(S): A CECUM SPECIMEN(S): B RECTUM SPECIMEN SOURCE: A. CECUM B. RECTUM CLINICAL HISTORY: Diarrhea, occult blood; diverticulitis, internal hemorrhoid. MICROSCOPIC DESCRIPTION: Histologic sections of all submitted blocks are examined by light microscopy. These findings, together with the gross examination, support the pathologic diagnosis. FINAL PATHOLOGIC DIAGNOSIS: A. Cecum, biopsy: - Benign colonic mucosa, negative for specific diagnostic abnormality. B. Rectum, biopsy: - Polypoid colonic mucosa, negative for specific diagnostic abnormality. JVR:cml:C2NR GROSS DESCRIPTION: Two specimens are received in two containers, labeled "KW." A. The specimen, labeled "KW," and designated on the requisition "cecum biopsy," is received in formalin and consists of two fragments of pink-lanza tissue (0.3 x 0.3 x 0.2 cm). The specimen is submitted entirely in cassette (A1). B. The specimen, labeled "KW," and designated on the requisition "rectum biopsy," is received in formalin and consists of one fragment of pink-lanza tissue (0.4 x 0.3 x 0.2 cm). The specimen is submitted entirely in cassette (B1). AC (under the direct supervision of a pathologist) The Gross Description was prepared using a voice recognition system. The report was reviewed for accuracy; however, sound-alike word errors, addition and/or deletions may occur. If there is any question about this report, please contact Client Services. PERFORMING LABORATORY: The technical component was performed by [facility], [address] [place] [id number] (Ems Director: Heidy Stevens MD; CLIA# [id number]). Professional interpretation was performed by PATIENT NAME: CLEM KAUR PATHOLOGY DATE OF : 43 REPORT #: [id number] PHYSICIAN: [facility] PCP: DWAYNE CEBALLOS MD REPORT IS CONFIDENTIAL AND NOT TO BE RELEASED WITHOUT AUTHORIZATION [facility] [address] [place], [place] [address] Signed [facility], [facility], [address] [place] [id number] (Ems Director: Byron Quiroz M.D.). Diagnostician: Byron Quiroz MD Pathologist Electronically Signed 05/14/2020 Copies: ~ PATIENT NAME: CLEM KAUR PATHOLOGY DATE OF : 43 REPORT #: [id number] PHYSICIAN: [facility] PCP: DWAYNE CEBALLOS MD REPORT IS CONFIDENTIAL AND NOT TO BE RELEASED WITHOUT AUTHORIZATION
== END 2020-05-12 15:00 | disposition home or self-care (01) ==
LOC: OPS 11:55 → DS 13:00 → OPS 13:00
PROVIDERS: Surgery
PROC: 0DBP8ZX Excision of Rectum, Via Natural or Artificial Opening Endoscopic, Diagnostic (ICD-10-PCS; 2020-05-12)
PROC: 0DBH8ZX Excision of Cecum, Via Natural or Artificial Opening Endoscopic, Diagnostic (ICD-10-PCS; principal; 2020-05-12 13:00)
DX: K62.1 Rectal polyp (principal); K64.8 Other hemorrhoids; K57.30 Diverticulosis of large intestine without perforation or abscess without bleeding; C90.00 Multiple myeloma not having achieved remission; Z79.899 Other long term (current) drug therapy; Z90.49 Acquired absence of other specified parts of digestive tract
CPT/HCPCS: 99153; G0500; J0690; J2250; J3010; J7121

== ENCOUNTER 2021-02-20 14:57 | Emergency (ER) | payer MEDICARE, OTHER ==
[~2021-02-20] VITALS: Ht 175.3 cm; Wt 80.7 kg
[2021-02-20] MEDS ORDERED: COSENTYX P150 MG/11 SQ (15:28)
== END 2021-02-20 16:35 | disposition home or self-care (01) ==
LOC: ED 14:57
DX: S80.02XA Contusion of left knee, initial encounter (principal); W22.8XXA Striking against or struck by other objects, initial encounter; Z87.891 Personal history of nicotine dependence; Z88.8 Allergy status to other drugs, medicaments and biological substances; Z79.899 Other long term (current) drug therapy
CPT/HCPCS: 73560; 99283-25

== ENCOUNTER 2022-01-23 18:07 | Emergency (ER) | payer MEDICARE, OTHER ==
[~2022-01-23] VITALS: Ht 175.3 cm; Wt 80.7 kg
[~2022-01-23 18:07] MED LIST changes: +COSENTYX P150 MG/11 SQ
[2022-01-23] MEDS ORDERED: PREDNISONE20 MG PO (18:47)
[2022-01-23] MEDS ORDERED: HYDROXYZINE HCL25 MG PO (18:51)
== END 2022-01-23 19:05 | disposition home or self-care (01) ==
LOC: ED 18:07
DX: L30.9 Dermatitis, unspecified (principal); M06.9 Rheumatoid arthritis, unspecified; Z88.8 Allergy status to other drugs, medicaments and biological substances; Z79.899 Other long term (current) drug therapy
CPT/HCPCS: 99282; J7512

== ENCOUNTER 2022-07-26 18:51 | Emergency (ER) | payer MEDICARE, OTHER ==
[~2022-07-26] VITALS: Ht 175.3 cm; Wt 83.9 kg
[~2022-07-26 18:51] MED LIST changes: +HYDROXYZINE HCL25 MG PO; +PREDNISONE20 MG PO
== END 2022-07-26 22:36 | disposition home or self-care (01) ==
LOC: ED 18:51
DX: S80.12XA Contusion of left lower leg, initial encounter (principal); W18.2XXA Fall in (into) shower or empty bathtub, initial encounter; M06.9 Rheumatoid arthritis, unspecified; Z88.8 Allergy status to other drugs, medicaments and biological substances; Z79.899 Other long term (current) drug therapy
CPT/HCPCS: 73590; 99283-25

== ENCOUNTER 2023-03-11 13:45 | Emergency (ER) | payer MEDICARE, OTHER ==
[~2023-03-11] VITALS: Ht 175.3 cm; Wt 81.7 kg
[~2023-03-11 13:45] MED LIST changes: +CEPHALEXIN500 M1 PO
[2023-03-11] MEDS ORDERED: HYDROCODON-ACE1 EA10 PO (16:57)
[2023-03-11 17:19] VITALS: BP 138/54
== END 2023-03-11 17:20 | disposition home or self-care (01) ==
LOC: ED 13:45
DX: S60.222A Contusion of left hand, initial encounter (principal); S16.1XXA Strain of muscle, fascia and tendon at neck level, initial encounter; S41.112A Laceration without foreign body of left upper arm, initial encounter; S00.81XA Abrasion of other part of head, initial encounter; W01.198A Fall on same level from slipping, tripping and stumbling with subsequent striking against other object, initial encounter; Z88.8 Allergy status to other drugs, medicaments and biological substances
CPT/HCPCS: 70450; 72125; 73130; 73560

== ENCOUNTER 2024-09-17 09:04 | Emergency (ER) | payer MEDICARE, OTHER ==
[~2024-09-17] VITALS: Ht 172.7 cm; Wt 89.4 kg
[~2024-09-17 09:04] MED LIST changes: +CEPACOL SORE T1 EAC5 MM; +HYDROCODON-ACE1 EA10 PO
[2024-09-17] MEDS ORDERED: ACETAMINOPHEN 500 MG TAB PO ONE (09:45)
[2024-09-17] MEDS ORDERED: LIDOCAINE HCL 4% 1 EACH PATCH TD ONE (10:15)
[2024-09-17] MEDS ORDERED: KETOROLAC TROMETHAMINE 30 MG/ML VIAL IM ONE (10:15)
[2024-09-17] MEDS ORDERED: diazePAM 5 MG TAB PO ONE (10:15)
[2024-09-17] MEDS ORDERED: LIDODERM1 EACH TOP (11:11)
[2024-09-17] MEDS ORDERED: HYDROCODON-ACE1 EA10 PO (11:11)
[2024-09-17] MEDS ORDERED: CYCLOBENZAPRINE5 MG PO (11:11)
[2024-09-17 11:25] VITALS: BP 148/57
[2024-09-17] MEDS ORDERED: LIDOCAINE PATCH REMOVAL 1 EA TD SCH (21:00)
== END 2024-09-17 11:15 | disposition home or self-care (01) ==
LOC: ED 09:04
DX: M25.511 Pain in right shoulder (principal); M54.9 Dorsalgia, unspecified; C90.00 Multiple myeloma not having achieved remission; M06.9 Rheumatoid arthritis, unspecified; Z86.711 Personal history of pulmonary embolism; Z88.8 Allergy status to other drugs, medicaments and biological substances; Z79.899 Other long term (current) drug therapy
CPT/HCPCS: 73030; 96372; 99283; A9270; J1885

== ENCOUNTER 2025-08-05 09:52 | Emergency (ER) | payer MEDICARE, OTHER ==
[~2025-08-05] VITALS: Ht 172.7 cm; Wt 89.6 kg
[~2025-08-05 09:52] MED LIST changes: +CYCLOBENZAPRINE5 MG PO; +LIDODERM1 EACH TOP
[2025-08-05] MEDS ORDERED: LORazepam 2 MG/ML VIAL IV ONE ×2 (10:15→11:15)
[2025-08-05] MEDS ORDERED: SODIUM CHLORIDE 0.9% 500 ML IV PRN (10:15)
[2025-08-05] MEDS ORDERED: GLUCAGON,HUMAN RECOMBINANT 1 MG/ML VIAL IV ONE (10:15)
[2025-08-05 10:16] LABS: BASOPHILS 0.5 % (0.1-1.2); EOSINOPHILS 4.5 % (0.7-5.8); LYMPHOCYTES 28.8 % (19.3-51.7); MCH 30.8 PG (25.6-32.2); MCHC 34.3 g/dL (32.2-35.5); MCV 90.0 fL (79.4-94.8); MONOCYTES 7.9 % (4.7-12.5); NEUTROPHILS 57.8 % (34.0-71.1); RBC 3.89 M/uL (3.93-5.22)
[2025-08-05 10:23] LABS: INR 1.16 (0.80-1.30); PROTIME 14.1 Sec (11.2-14.2)
[2025-08-05 10:27] LABS: ALT (SGPT) 7.0 U/L (14-59); AST (SGOT) 11.0 U/L (15-37); GLOMERULAR FILTRATION RATE,EST 59.0 mL/min (>60); PROTEIN, TOTAL 7.9 g/dL (6.4-8.2); UREA NITROGEN 7.0 mg/dL (7-18)
[2025-08-05] MEDS ORDERED: POTASSIUM CHLORIDE 10 MEQ/100 ML BAG IV SCH (10:45)
[2025-08-05] MEDS ORDERED: POTASSIUM CHLORIDE 20 MEQ in DEXTROSE 5% 250 ML IV ONE (11:00)
[2025-08-05] MEDS ORDERED: PROTONIX40 MG PO (13:59)
[2025-08-05 14:11] VITALS: BP 135/67
== END 2025-08-05 14:12 | disposition home or self-care (01) ==
LOC: ED 09:52
PROVIDERS: Emergency Medicine
DX: R09.A2 Foreign body sensation, throat (principal); K22.2 Esophageal obstruction; Z96.651 Presence of right artificial knee joint; Z88.8 Allergy status to other drugs, medicaments and biological substances; R06.02 Shortness of breath
CPT/HCPCS: 36415; 71045; 80053; 85025; 85610; 96365; 96366; 96375; 96376; 99284-25; J1610; J2060; J2405; J3480; J7040

== ENCOUNTER 2025-10-03 10:15 | Day surgery (SDC) | payer MEDICARE, OTHER ==
[~2025-10-03] VITALS: Ht 175.3 cm; Wt 82.0 kg
[~2025-10-03 10:15] MED LIST changes: +CEFAZOLIN SODIUM 2 GM in SODIUM CHLORIDE 0.9% 100 ML IV SCH; -COSENTYX P150 MG/11 SQ; +COSENTYX P150 MG/11 SUB-Q; +IBLOOD GLUCOSE TEST STRIP 1 EA TEST VI PRN; +IRON159 MG PO; +LACTATED RINGER'S 1,000 ML IV SCH; +LIDOCAINE HCL 1% 5 ML SDV INJ ONE; +PROTONIX40 MG PO; +ST. JOHN'S WOR350 MG PO
[2025-10-03 10:30] VITALS: BP 155/55
[2025-10-03 10:49] LABS: BASOPHILS 0.8 % (0.1-1.2); EOSINOPHILS 4.3 % (0.7-5.8); LYMPHOCYTES 22.3 % (19.3-51.7); MCH 31.0 PG (25.6-32.2); MCHC 34.3 g/dL (32.2-35.5); MCV 90.4 fL (79.4-94.8); MONOCYTES 8.2 % (4.7-12.5); NEUTROPHILS 64.4 % (34.0-71.1); RBC 3.84 M/uL (3.93-5.22)
--- NOTE | 2025-10-03 14:03 | NUR ---
10/03/25 1403 Karin Butler 1354- PT ARRIVES TO PACU, LEFT LATERAL SEMI ACOSTA POSITION, NON REACTIVE TO STIMULUS. BREATHING EVEN AND NON LABORED, O2 AT 4L PER NC. ABD SOFT, NON DISTENDED. LR INFUSING TO RW IV. ALL MONITORS IN PLACE. 1401- O2 TURNED DOWN TO 2L PER NC. PT CONTINUE TO REST AT THIS TIME.
[2025-10-03 14:31] VITALS: BP 154/70
--- NOTE | 2025-10-04 17:12 | OR ---
[facility] [address] [place], [place] [address] Signed DATE OF OPERATION: 10/03/2025 SURGEON: Edmar Aguirre MD PREOPERATIVE DIAGNOSES: 1. Episodic dysphagia. 2. Distant history of esophageal dilation. POSTOPERATIVE DIAGNOSES: No evidence of dense stricture; mild antral gastritis and hiatal hernia. PROCEDURES: 1. Esophagogastroduodenoscopy with biopsy. 2. Puerto Rican over the wire, esophageal dilation, 51-Lithuanian (single pass). ANESTHESIA: Intravenous sedation propofol; Gerry White CRNA. INDICATION: This 80-year-old woman is a patient of Dr. Dwayne Garibay and was referred for consideration for upper endoscopy and possible dilation related to dysphagia. Her dysphagia is not profound and is not on every occasion of swallowing, but is worse with solid food sometimes. As it turns out, she underwent upper endoscopy and dilation greater than 15 years ago at [facility], which she says was markedly beneficial. She denies any specific reflux symptoms though has had no hematemesis and no family history of esophageal cancer. She does not take a PPI medication or other medication for reflux symptoms. She is admitted at this time to undergo upper endoscopy and possible dilation, understands the risk of bleeding, infection, and perforation. FINDINGS: There is no dense stricture. The midesophagus did not have felinization though she still may have underlying eosinophilic esophagitis. The stomach was notable for a hiatal hernia of moderate size. The antrum had mild inflammation and duodenum was essentially normal. CLOtest was negative 15 minutes post procedure. An Puerto Rican over the wire, single pass dilation 51-Lithuanian was undertaken as an empiric remedy to her dysphagia, however, it is more probable that she has an underlying dysmotility issue. DESCRIPTION OF PROCEDURE: Electronically Signed By: EDMAR AGUIRRE MD 10/04/25 1712 PATIENT NAME: CLEM KAUR OPERATIVE REPORT DATE OF : 43 REPORT #: [id number] PHYSICIAN: EDMAR AGUIRRE MD PCP: DWAYNE GARIBAY MD REPORT IS CONFIDENTIAL AND NOT TO BE RELEASED WITHOUT AUTHORIZATION [facility] [address] [place], [place] [address] Signed The patient was brought to the endoscopy suite and placed in lateral decubitus position, given intravenous sedation with propofol infusional technique with full cardiopulmonary monitoring. A bite block was placed. An Olympus video upper endoscope was passed in the hypopharynx. The vocal cords appeared normal. Scope was advanced to the esophagus and examination throughout its length undertaken carefully. There was no sign of dense stricture in the distal esophagus, though there was minimal inflammation. Scope was passed to the stomach which was insufflated with air. Rugal folds were normal. Antrum had mild inflammation. Pylorus was normal and non-distorted. Scope was passed through into the duodenum. Duodenum appeared entirely normal. Biopsies were taken in the third and bulbar portions. The scope was withdrawn and biopsies taken of the antrum to assess for pathology and H pylori. CLOtest biopsies were obtained as well. Retroflexed view was undertaken showing a moderate-sized hiatal hernia. Scope was withdrawn to the distal esophagus where biopsies were obtained, though it did not appear to have a dense stricture and certainly no neoplasm or Centeno's epithelium. Scope was withdrawn to the mid esophagus also to allow for biopsy. Mindful that there was no specific dense stricture, but also, mindful that empiric dilation can be helpful sometimes. The scope was advanced further into the stomach and a flexible wire passed through the channel of the scope stabilizing the wire carefully and removing the scope entirely. A 51-Lithuanian Puerto Rican over the wire dilator was passed on the wire and liberally lubricated and passed over the wire to its reasonably full extent and the stent and wire were removed as one. Scope was reintroduced. Examination of the esophagus showed no sign of injury and no cracking of mucosa, only the areas of previous biopsy. Scope was withdrawn and removed. The patient was taken to the recovery room in good condition. CONCLUDING DIAGNOSES: 1. Dysphagia, uncertain if related to dysmotility; empiric dilation undertaken to 51-Lithuanian. 2. Antral gastritis. PLAN: We will recommend omeprazole 20 mg p.o. daily. She should follow up with Dr. Garibay and I will see her back in the office in 4 to 6 weeks, asking her to call for appointment on Monday. Edmar Aguirre MD Electronically Signed By: EMDAR AGUIRRE MD 10/04/25 1712 PATIENT NAME: CLEM KAUR OPERATIVE REPORT DATE OF : 43 REPORT #: [id number] PHYSICIAN: EDMAR AGUIRRE MD PCP: DWAYNE GARIBAY MD REPORT IS CONFIDENTIAL AND NOT TO BE RELEASED WITHOUT AUTHORIZATION [address] [address] Signed /MARIANNE /[id number] cc: Dr. Dwayne Garibay [facility] Copies: ~ Electronically Signed By: EDMAR AGUIRRE MD 10/04/25 1712 PATIENT NAME: CLEM KAUR OPERATIVE REPORT DATE OF : 43 REPORT #: [id number] PHYSICIAN: EDMAR AGUIRRE MD PCP: DWAYNE GARIBAY MD REPORT IS CONFIDENTIAL AND NOT TO BE RELEASED WITHOUT AUTHORIZATION
--- NOTE | 2025-10-08 08:22 | PATH ---
[facility] [address] [place], [place] [address] Signed SPECIMEN(S): A DUODENAL BIOPSY SPECIMEN(S): B ANTRUM BIOPSY SPECIMEN(S): C DISTAL LOWER ESOPHAGEAL BIOPSY SPECIMEN SOURCE: A. DUODENAL BIOPSY B. ANTRUM BIOPSY C. DISTAL LOWER ESOPHAGEAL BIOPSY CLINICAL HISTORY: Dysphagia, hiatal hernia, low-grade esophageal stricture FINAL PATHOLOGIC DIAGNOSIS: A. Duodenum, biopsy: - Benign duodenal mucosa, negative for significantly increased intraepithelial lymphocytosis and villous blunting. B. Antrum, biopsy: - Benign antral type gastric mucosa with reactive gastropathy. - Negative for intestinal metaplasia and dysplasia. - Negative for Helicobacter pylori organisms on routine stain. C. Distal lower esophagus, biopsy: - Fragments of reactive squamous epithelium with reflux changes. - Negative for intestinal metaplasia and dysplasia. DDF MICROSCOPIC EXAMINATION: Histologic sections of all submitted blocks are examined by light microscopy. These findings, together with the gross examination, support the pathologic diagnosis. GROSS DESCRIPTION: A. The specimen, labeled and designated "Kaur, duodenal biopsy," is received in formalin and consists of two lanza soft tissue fragments, ranging from 0.2-0.3 cm. Entirely submitted in (A1). B. The specimen, labeled and designated "Kaur, antrum biopsy," is received in formalin and consists of two lanza soft tissue fragments, ranging from 0.3-0.5 cm. Entirely submitted in (B1). C. The specimen, labeled and designated "Kaur, distal lower esophageal biopsy," is received in formalin and consists of four lanza soft tissue fragments, ranging from 0.4-0.6 cm. Entirely submitted in (C1). PATIENT NAME: CLEM KAUR PATHOLOGY DATE OF : 43 REPORT #: [id number] PHYSICIAN: BRYCE GOMEZ PCP: DWAYNE CEBALLOS MD REPORT IS CONFIDENTIAL AND NOT TO BE RELEASED WITHOUT AUTHORIZATION [facility] [address] [place], [place] [address] Signed VB (under the direct supervision of a pathologist) The Gross Description was prepared using a voice recognition system. The report was reviewed for accuracy; however, sound-alike word errors, addition and/or deletions may occur. If there is any question about this report, please contact Client Services. ADDITIONAL NOTES: Immunohistochemical and/or in situ hybridization studies if performed in this case included appropriate positive controls that reacted as expected. This test was developed and its performance characteristics determined by [facility]. It has not been cleared or approved by the U.S. Food and Drug Administration. The FDA has determined that such clearance or approval is not necessary. This test is used for clinical purposes. It should not be regarded as investigational or for research. [facility] is certified under the Clinical Laboratory Improvement Amendments of 1988 (CLIA) as qualified to perform high complexity clinical laboratory testing. PERFORMING LABORATORY: Technical component was performed by [facility], [address] [place] [address] (CLIA# [id number]). Professional interpretation was performed by [email or web address] [address] [place] [phone] [id number] Diagnostician: Mina Alford DO Pathologist Electronically Signed 10/08/2025 Copies: ~ PATIENT NAME: CLEM KAUR PATHOLOGY DATE OF : 43 REPORT #: [id number] PHYSICIAN: [facility] PCP: DWAYNE CEBALLOS MD REPORT IS CONFIDENTIAL AND NOT TO BE RELEASED WITHOUT AUTHORIZATION
== END 2025-10-03 14:45 | disposition home or self-care (01) ==
LOC: DS 10:15
PROVIDERS: ATTEND Surgery
PROC: 0DB58ZX Excision of Esophagus, Via Natural or Artificial Opening Endoscopic, Diagnostic (ICD-10-PCS; 2025-10-03)
PROC: 0D758ZZ Dilation of Esophagus, Via Natural or Artificial Opening Endoscopic (ICD-10-PCS; 2025-10-03)
PROC: 0DB98ZX Excision of Duodenum, Via Natural or Artificial Opening Endoscopic, Diagnostic (ICD-10-PCS; principal; 2025-10-03 11:45)
DX: K44.9 Diaphragmatic hernia without obstruction or gangrene (principal); K29.70 Gastritis, unspecified, without bleeding; K31.89 Other diseases of stomach and duodenum; K22.89 Other specified disease of esophagus; C90.00 Multiple myeloma not having achieved remission; Z88.6 Allergy status to analgesic agent; Z88.8 Allergy status to other drugs, medicaments and biological substances; Z90.49 Acquired absence of other specified parts of digestive tract
CPT/HCPCS: 00813; 36415; 85025; 88305; J0688; J7121